=== PATIENT | female | born 1975 | race Caucasian/White ===

== ENCOUNTER 2025-01-15 21:49 | Emergency (ER) | payer OTHER, SELFPAY ==
[2025-01-15 21:52] VITALS: BP 161/94; PULSE 67; RESP 16; TEMP 36.1; O2SAT 98; BMI 27.9
--- NOTE | 2025-01-15 22:14 | ED_ITS ---
HPI - General Adult General Date Seen: 01/15/25 Chief complaint: Urogenital Problems, Female Stated complaint: blood in urine Time Seen by Provider: 01/15/25 22:03 History of Present Illness HPI narrative: Patient is a 49-year-old woman with hematuria and dysuria that started earlier today. She did try azo earlier which she said did not help. Took a couple of ibuprofen a little bit ago and she does feel like that is starting to help. She has noted blood in her urine, also urine now has that warmed Leo from azo. Denies abdominal or flank pain, fevers, nausea or vomiting. No new sexual partners vaginal discharge or concerns about exposure to sexually transmitted infections. No concerns about . No significant gynecologic history. She notes urethral pain with voiding. She does tell me that she had some dysuria a few months ago but urine was negative, they suggested treating for yeast infection at that time so she did try some Monistat today as well. She has not had any vaginal discharge suggestive of yeast. Related Data Home Medications ?Medication ?Instructions ?Recorded ?Confirmed No Known Home Medications 11/08/22 11/07/23 Allergies Allergy/AdvReac Type Severity Reaction Status Date / Time No Known Allergies Allergy Unknown Verified 11/07/23 09:32 Review of Systems Status of ROS: Reports: 6 or more systems reviewed and unremarkable except as noted in History and below PFSH PFSH Social History Smoking Status: Never smoker Exam Narrative: Exam Narrative: Vital signs reviewed In general, alert, nontoxic woman. Abdomen soft nontender no CVA tenderness. Skin: Warm dry well perfused Const: Vital Signs, click to edit/add: Vital Signs - 24 hr 01/15/25 21:52 01/15/25 22:50 Temperature 97.0 F L Pulse Rate [Left P ulse Oximeter] 67 68 Respiratory Rate 16 20 Blood Pressure [Ri ght Upper Arm] 161/94 H 156/86 H Pulse Oximetry 98 Oxygen Delivery Me thod Room Air Course Course ED Course: Urinalysis shows 0-2 red cells 5-10 white cells positive nitrites, overall her history is suggestive of urinary tract infection and I think UA is supportive of that as well. I suggested to her that we start by treating for urinary tract infection and then if she is not improving in all over the next couple of days would want to see her back. In the meantime, she can use azo and or ibuprofen as needed. No red flags here to suggest that she needs imaging or blood work at this time. She is comfortable with that. Macrobid prescribed from [facility]. Vital Signs Vital signs: Initial Vital Signs Temperature 97.0 F L 01/15/25 21:52 Temperature Source Temporal Artery Scan 01/15/25 21:52 Pulse Rate 67 01/15/25 21:52 Pulse Rhythm Regular 01/15/25 21:52 Respiratory Rate 16 01/15/25 21:52 Blood Pressure 161/94 H 01/15/25 21:52 Blood Pressure Mean 116 H 01/15/25 21:52 Blood Pressure Position Sitting 01/15/25 21:52 Pulse Oximetry 98 01/15/25 21:52 Oxygen Delivery Method Room Air 01/15/25 21:52 Vital Signs Temperature 97.0 F L 01/15/25 21:52 Pulse Rate 67 01/15/25 21:52 Respiratory Rate 01/15/25 21:52 Blood Pressure 161/94 H 01/15/25 21:52 Pulse Oximetry 98 01/15/25 21:52 Oxygen Delivery Method Room Air 01/15/25 21:52 Temperature 97.0 F L 01/15/25 21:52 Pulse Rate 68 01/15/25 22:50 Respiratory Rate 20 01/15/25 22:50 Blood Pressure 156/86 H 01/15/25 22:50 Pulse Oximetry 98 01/15/25 21:52 Oxygen Delivery Method Room Air 01/15/25 21:52 Medical Decision Making Lab Data Lab results reviewed: Yes I reviewed the patient's lab results Labs: Lab Results 01/15/25 Range/Units 22:05 Urine Color Yellow (Yellow) Urine Appearance Turbid A (Clear) Urine pH 6.5 (5.0-8.5) Ur Specific [place] 1.010 (1.000-1.030) Urine Protein Trace A (Negative) Urine Glucose (UA) Trace A (Negative) Urine Ketones Negative (Negative) Urine Blood 2+ A (Negative) Urine Nitrite Positive A (Negative) Urine Bilirubin Negative (Negative) Urine Urobilinogen 1.0 (0.2-1.0) Ur Leukocyte Esterase 3+ A (Negative) Urine RBC 0-2 (0-2) Urine WBC 5-10 A (0-5) Ur Squamous Epith Cells None (None-Few) Urine Bacteria Few A (None) Discharge Plan Discharge Clinical Impression: Urinary tract infection Patient Disposition: Home, Self-Care Condition: Stable Instructions: Urinary Tract Infection in Women (DC) Additional Instructions: Macrobid as prescribed, azo and or ibuprofen as needed. Return any time if you are feeling worse have new symptoms such as high fevers, flank pain, vomiting, chills etcetera. If you do not feel you are improving and all over the next 48 hours, you should be seen again for recheck. Prescriptions: No Action No Known Home Medications Follow Up/Referrals: Provider,Not a Local [Primary Care Provider] - Stand Alone Forms: [employer] Info Instructions
[2025-01-15 22:19] LABS: Appearance Urine Turbid (Clear); Bilirubin Urine Negative (Negative); Blood Urine 2+ (Negative); Color Urine Yellow (Yellow); Glucose Urine Trace (Negative); Ketones Urine Negative (Negative); Leukocyte Esterase Urine 3+ (Negative); Nitrite Urine Positive (Negative); Protein Urine Trace (Negative); pH Urine 6.5 (5.0-8.5)
[2025-01-15 22:34] LABS: Bacteria Urine Few; RBC Urine 0-2 (0-2)
[2025-01-15 22:50] VITALS: BP 156/86; PULSE 68; RESP 20
== END 2025-01-15 22:51 | disposition home or self-care (01) ==
LOC: ED 22:48
PROVIDERS: Emergency Provider Emergency Medicine
DX: N39.0 Urinary tract infection, site not specified (principal); R31.9 Hematuria, unspecified
CPT/HCPCS: 81001; 87086; 99283